=== PATIENT | male | born 1990 | race Caucasian/White ===

== ENCOUNTER → 2016-07-30 | Outpatient (CLI) | payer OTHER | LOC: BMCIMAGING 14:35 | PROVIDERS: ATTEND Family Medicine | DX: R10.9 Unspecified abdominal pain (principal); R31.9 Hematuria, unspecified; R93.8 Abnormal findings on diagnostic imaging of other specified body structures ==

== ENCOUNTER → 2018-09-12 | Outpatient (CLI) | payer OTHER | LOC: BMCIMAGING 15:35 | PROVIDERS: ATTEND Internal Medicine | DX: M25.562 Pain in left knee (principal); Z87.828 Personal history of other (healed) physical injury and trauma ==